=== PATIENT | male | born 1965 | race Caucasian/White ===

== ENCOUNTER 2020-03-28 00:28 | Outpatient (CLI) | payer BC, SELFPAY ==
[2020-03-28 17:43] LABS: SARS-CoV-2 RNA PCR Negative
== END 2020-03-28 00:29 | disposition home or self-care (01) ==
LOC: ANHCOVIDDT 00:29
PROVIDERS: PCP Family Medicine Sports Medicine; Visit Provider Internal Medicine Gastroenterology
DX: Z01.818 Encounter for other preprocedural examination (principal); Z11.59 Encounter for screening for other viral diseases
CPT/HCPCS: 87635; C9803; U0003

== ENCOUNTER 2020-03-30 01:52 | Day surgery (SDC) | payer BC, SELFPAY ==
[2020-03-23 10:23] VITALS: BMI 31.0
[2020-03-30] MEDS: LACTATED RINGERS 1,000 ML 150 ML IV CONT (07:16)
[2020-03-30 07:19] VITALS: BP 132/91; PULSE 79; RESP 16; TEMP 36.6; O2SAT 96; BMI 29.6
--- NOTE | 2020-03-30 07:29 | P.PNAN_ITS ---
Anes - Initial Pre Proc Eval Procedure: Operation Date: 03/30/20 08:30 Proposed Procedures p Esophagogastroduodenoscopy & Screening Colonoscopy - Mukesh Mckeon MD Date/Time: 03/30/20 07:29 Surgeon: Mukesh Maynard MD Pre Op Diagnosis: Neoplasm Screening/ Cirrhosis Patient Data Age: 55 Gender: M Height: 1.8 m Weight: 96.3 kg Last Vital Signs Temp 36.6 C 03/30/20 07:19 Pulse 79 03/30/20 07:19 Resp 16 03/30/20 07:19 BP 132/91 H 03/30/20 07:19 Pulse Ox 96 03/30/20 07:19 Allergies Allergy/AdvReac Type Severity Reaction Status Date / Time No Known Allergies Allergy Unverified 03/21/20 10:52 Home Medications Medication Instructions Recorded Confirmed Type losartan 100 1 tablet PO DAILY 03/21/20 03/30/20 History mg-hydrochlorothiazide 25 mg tablet Patient hx anesthesia problems: none Family hx anesthesia problems: none [facility] Past Medical History Medical History (Updated 03/21/20 @ 11:26 by Mukesh Maynard MD) Cirrhosis Colon cancer screening Elevated liver enzymes Hypertension Anes - Eval Final PreProcedure Day of Procedure 03/30/20 07:29 Patient weight: overweight Heart: regular rate and rhythm Lungs: clear to auscultation and normal air movement Airway: Mallampati scale class II Neurological: alert and oriented Last oral intake: >/= 8 hours ASA classification: III Emergent: no Anesthetic plan: proceed Anesthesia type and monitoring: general GIVS Informed Consent: The patient's anesthetic plan and its attendant risks and benefits were discussed with the patient/family/POA. Questions were solicited and answers provided to the satisfaction of the patient/family/POA.
--- NOTE | 2020-03-30 07:59 | WPDHPUPDATE1 ---
History and Physical Update Update Date/Time: 03/30/20 07:59 History and Physical has been reviewed, including an updated exam of the patient. There are NO changes in the patient's condition. Risks, benefits, and alternatives have been discussed and questions answered. Patient agrees to proceed with procedure.
[2020-03-30 08:37] VITALS: BP 88/57; PULSE 67; RESP 20; O2SAT 95
[2020-03-30 08:47] VITALS: BP 98/66; PULSE 66; RESP 15; O2SAT 94
[2020-03-30 08:57] VITALS: BP 100/70; PULSE 65; RESP 22; O2SAT 94
== END 2020-03-30 09:16 | disposition home or self-care (01) ==
PROVIDERS: PCP Family Medicine Sports Medicine; Visit Provider Internal Medicine Gastroenterology
PROC: 0DJ08ZZ Inspection of Upper Intestinal Tract, Via Natural or Artificial Opening Endoscopic (ICD-10-PCS; CPT 43235; principal; 2020-03-30 08:30)
DX: Z12.11 Encounter for screening for malignant neoplasm of colon (principal); D12.3 Benign neoplasm of transverse colon; D12.5 Benign neoplasm of sigmoid colon; K63.5 Polyp of colon; K64.8 Other hemorrhoids; K57.30 Diverticulosis of large intestine without perforation or abscess without bleeding; K74.60 Unspecified cirrhosis of liver; I10 Essential (primary) hypertension
CPT/HCPCS: 45380; 45385; 43235; 88305; J2001; J2704; J7120

== ENCOUNTER 2021-07-13 14:18 | Day surgery (SDC) | payer BC, SELFPAY ==
[2021-07-13] VITALS (7 sets, daily range): BP systolic 114–158; BP diastolic 83–107; PULSE 60–88; RESP 16–22; TEMP 36.3–36.7; O2SAT 96–99
--- NOTE | ~2021-07-13 | XR_ITS ---
XR chest 1V portable DATE: 07/13/2021 14:56 INDICATION: Chest pain. Steak stuck since . TECHNIQUE: Portable upright AP chest on 07/13/2021 at 1452 hours COMPARISON: None FINDINGS: Normal heart size. Minimal aortic unfolding. No hilar or mediastinal enlargement. The lungs are clear of infiltrate or consolidation. No pleural effusion or pulmonary vascular congestion or pn eumothorax. Mild scoliosis. IMPRESSION: No active cardiopulmonary disease Reviewed, dictated and finalized at location A.
--- NOTE | 2021-07-13 14:46 | ED.GENADULT ---
HPI - General Adult General Chief complaint: Unspecified Stated complaint: STEAK STUCK Time Seen by Provider: 07/13/21 14:20 Source: RN notes reviewed History of Present Illness HPI narrative: Patient presents emergency department from home for food impaction. Patient states he was eating steak Th night when a piece of steak got lodged in his lower throat. Patient states he has been unable to tolerate any liquids or his secretions since that time he denies any fevers or chills states he did try drinking soda with minimal relief he does note a pressure in his middle lower chest states he has never had an EGD Related Data Home Medications Medication Instructions Recorded Confirmed losartan 100 1 tablet PO DAILY 03/21/20 03/30/20 mg-hydrochlorothiazide 25 mg tablet Allergies Allergy/AdvReac Type Severity Reaction Status Date / Time No Known Allergies Allergy Unverified 03/21/20 10:52 Review of Systems Review of Systems: Gen.: Denies fevers or chills ENT: Denies congestion Respiratory: Denies shortness of breath or cough CV: Reports lower midsternal chest pain GI: See HPI Musculoskeletal: Denies back pain or muscle pain Neuro: Denies numbness, tingling, weakness or focal weakness Skin: Denies rash Except as documented, all other systems reviewed and negative [facility] Past Medical History Medical History Adenomatous colon polyp Cirrhosis Colon cancer screening Elevated liver enzymes Hepatitis C Hypertension Social History Social History (Updated 07/13/21 @ 15:23 by Maeve Lugo CRNA) Smoking packs per day: 1.5 Smoking cigarettes per day: 30.0 Years smoked: 45 Smoking pack-years: 67.50 Smoking status: Current every day smoker Tobacco type: cigarettes Substance use type: does not use Living arrangements: with family Exam Narrative: APPEARANCE: No acute distress, nontoxic, resting in bed EYES: EOMI HEENT: Normocephalic, atraumatic, OMM airway patent RESPIRATORY: No respiratory distress Clear to auscultation bilaterally with no rhonchi wheezing or rales. CARDIOVASCULAR: Regular rate and rhythm without murmurs rubs or gallops. ABDOMINAL: Soft, nontender, nondistended, no rebound or guarding MUSCULOSKELETAl: Moves all extremities. No clubbing, cyanosis or edema. NEURO: Awake and alert. Following commands, speech normal, no focal deficits SKIN:: Warm, dry. No rashes lesions or abrasions PSYCHIATRIC: Normal affect/mood, Course Course Emergency Course: Did have patient drink soda and jumped up and down patient immediately with emesis Called discussed Dr. Gusman will take to GI lab Discussed with patient plan for endoscopy lab in agreement Vital Signs Vital signs: Vital Signs Temperature 97.7 F 07/13/21 14:19 Pulse Rate 60 07/13/21 14:19 Respiratory Rate 16 07/13/21 14:19 Blood Pressure 158/98 H 07/13/21 14:19 Pulse Oximetry 96 07/13/21 14:19 Temperature 98.1 F 07/13/21 14:58 Pulse Rate 88 07/13/21 14:58 Respiratory Rate 18 07/13/21 14:58 Blood Pressure 151/101 H 07/13/21 14:58 Pulse Oximetry 98 07/13/21 14:58 Medical Decision Making Vital Signs Vital Signs: Vital Signs Temperature 97.7 F 07/13/21 14:19 Pulse Rate 60 07/13/21 14:19 Respiratory Rate 16 07/13/21 14:19 Blood Pressure 158/98 H 07/13/21 14:19 Pulse Oximetry 96 07/13/21 14:19 Temperature 98.1 F 07/13/21 14:58 Pulse Rate 88 07/13/21 14:58 Respiratory Rate 18 07/13/21 14:58 Blood Pressure 151/101 H 07/13/21 14:58 Pulse Oximetry 98 07/13/21 14:58 Lab Data Result diagrams: 07/13/21 15:07 07/13/21 15:07 Labs: Lab Results 07/13/21 07/13/21 Range/Units 15:07 15:07 WBC 9.6 (4.5-10.0) K/mm3 RBC 5.48 (4.6-6.20) M/mm3 Hgb 17.7 (14.0-18.0) g/dL Hct 50.5 (42.0-52.0) % MCV 92.2 (80-100) fl MCH 32.3 (26-34) pg MCHC 35.
--- NOTE | 2021-07-13 15:19 | WPDANESEPP ---
Anes - Eval Pre Procedure Procedure: upper endoscopsy for food bolus Date/Time: 07/13/21 15:19 Surgeon: Naseem Preop Diagnosis: esophageal obstruction, food bolus Pre Op Diagnosis: Food Bolus Patient Data Age: 56 Gender: M Height: 1.8 m Weight: 100 kg Last Vital Signs Temp 98.1 F 07/13/21 14:58 Pulse 88 07/13/21 14:58 Resp 18 07/13/21 14:58 BP 151/101 H 07/13/21 14:58 Pulse Ox 98 07/13/21 14:58 Allergies Allergy/AdvReac Type Severity Reaction Status Date / Time No Known Allergies Allergy Unverified 03/21/20 10:52 Home Medications Medication Instructions Recorded Confirmed Type losartan 100 1 tablet PO DAILY 03/21/20 03/30/20 History mg-hydrochlorothiazide 25 mg tablet Patient hx anesthesia problems: none Family hx anesthesia problems: none PMFSH Past Medical History Medical History Adenomatous colon polyp Cirrhosis Colon cancer screening Elevated liver enzymes Hepatitis C Hypertension Social History Social History (Updated 07/13/21 @ 15:23 by Maeve Lugo CRNA) Smoking packs per day: 1.5 Smoking cigarettes per day: 30.0 Years smoked: 45 Smoking pack-years: 67.50 Smoking status: Current every day smoker Tobacco type: cigarettes Substance use type: does not use Living arrangements: with family Exam Day of Procedure 07/13/21 15:19 Patient weight: overweight (bmi 30.7) Airway: Mallampati scale class II (partial plate- upper) Neurological: alert and oriented
[2021-07-13 15:27] LABS: Basophils Absolute Auto 0.1 K/mm3 (0.0-0.1); Basophils Percent Auto 0.5 % (0.2-1.2); Eosinophils Absolute Auto 0.2 K/mm3 (0-0.3); Eosinophils Percent Auto 2.2 % (0-4.4); Hematocrit 50.5 % (42.0-52.0); Hemoglobin 17.7 g/dL (14.0-18.0); Immature Granulocyte Absolute 0.03 K/mm3 (0.00-0.031); Immature Granulocyte Percent A 0.3 % (0-0.5); Lymphocytes Absolute Auto 3.48 K/mm3 (0.9-3.2); Lymphocytes Percent Auto 36.3 % (18.3-44.2); Mean Corpuscular Hemoglobin 32.3 pg (26-34); Mean Corpuscular Volume 92.2 fl (80-100); Mean Platelet Volume 10.9 fl (7.4-10.4); Monocytes Absolute Auto 0.6 K/mm3 (0.1-0.6); Monocytes Percent Auto 6.3 % (2.6-8.5); Neutrophils Absolute Auto 5.2 K/mm3 (1.3-6.7); Neutrophils Percent Auto 54.4 % (45.5-73.1); Platelet Count Result 206 k/mm3 (150-375); Red Blood Count 5.48 M/mm3 (4.6-6.20); Red Cell Distribution Width 13.6 % (11.5-14.5); White Blood Count 9.6 K/mm3 (4.5-10.0)
[2021-07-13 15:35] LABS: Alanine Aminotransferase 24 U/L (4-50); Alkaline Phosphatase 79 U/L (38-126); Anion Gap 13 mmol/L (8-16); Aspartate Amino Transferase 36 U/L (17-59); Bilirubin,Total 1.6 mg/dL (0.2-1.3); Blood Urea Nitrogen 24 mg/dL (9-20); Calcium 9.9 mg/dL (8.4-10.2); Carbon Dioxide 21 mmol/L (22-30); Chloride 110 mmol/L (98-107); Estimated CRCL calculation 62 ml/min; Estimated Glomerular Filt Rate 52; Glucose 111 mg/dL (65-110); Potassium 3.3 mmol/L (3.4-5.0); Sodium 144 mmol/L (137-145)
[2021-07-13] MEDS: LACTATED RINGERS 1,000 ML 150 ML IV CONT ×2 (15:48→16:02)
--- NOTE | 2021-07-13 15:59 | WPDANESEFPP ---
Anes - Eval Final PreProcedure Day of Procedure 07/13/21 15:59 Patient weight: obese Heart: regular rate and rhythm Lungs: clear to auscultation and normal air movement Airway: Mallampati scale class II Neurological: alert and oriented Last oral intake: >/= 8 hours ASA classification: III Emergent: yes Anesthetic plan: proceed Anesthesia type and monitoring: general ETT and standard monitoring Informed Consent: The patient's anesthetic plan and its attendant risks and benefits were discussed with the patient/family/POA. Questions were solicited and answers provided to the satisfaction of the patient/family/POA.
--- NOTE | 2021-07-13 16:08 | PM.HPGS ---
History of Present Illness History of Present Illness Consent: Risks, benefits, and alternatives have been discussed and questions answered. Patient agrees to proceed with procedure. Chief complaint: Food Bolus Narrative: Maurilio Gregory is a 56 year old male here after eat steak and got stuck, unable to keep eating or drinking anything. I am seeing him at the office because history of HCV for which he is been treated now with epclusa. EGD last year was normal (reason was screening for varices). Denies dysphagia otherwise. Review of Systems Constitutional: Constitutional: Denies headache(s) and Denies weakness Eyes: Eyes: Denies blurry vision ENT: Reports Normal hearing present, Denies headache(s) and Denies neck pain Cardiovascular: Cardiovascular: Denies chest pain and Denies dyspnea Respiratory: Respiratory: Denies dyspnea Gastrointestinal: Gastrointestinal: Reports no additional gastrointestinal complaints Genitourinary: Genitourinary: Denies dysuria Musculoskeletal: Musculoskeletal: Denies neck pain Integumentary/Breasts: Skin/Breast: Denies dry skin Neurologic: Reports Normal hearing present, Denies headache(s) and Denies weakness Psychiatric: Psychiatric: Denies anxiety Endocrine: Endocrine: Denies change in body appearance Hematologic/Lymphatic: Hematologic/Lymphatic: Denies easy bleeding Allergic/Immunologic: Allergic/Immunologic: Denies urticaria PMFSH Past Medical History Medical History Adenomatous colon polyp Cirrhosis Colon cancer screening Elevated liver enzymes Hepatitis C Hypertension Social History Social History (Updated 07/13/21 @ 15:23 by Maeve Lugo CRNA) Smoking packs per day: 1.5 Smoking cigarettes per day: 30.0 Years smoked: 45 Smoking pack-years: 67.50 Smoking status: Current every day smoker Tobacco type: cigarettes Substance use type: does not use Living arrangements: with family Meds Home Medications and Allergies Home Medications Medication Instructions Recorded Confirmed Type losartan 100 1 tablet PO DAILY 03/21/20 07/13/21 History mg-hydrochlorothiazide 25 mg tablet Allergies Allergy/AdvReac Type Severity Reaction Status Date / Time No Known Allergies Allergy Verified 07/13/21 15:55 Vital Signs Vital Signs - 24 hr 07/13/21 14:19 07/13/21 14:58 07/13/21 15:49 Temperature 97.7 F 98.1 F 97.4 F L Pulse Rate 60 88 75 Respiratory Rate 16 18 18 Blood Pressure 158/98 H 151/101 H 149/106 H Pulse Oximetry 96 98 96 07/13/21 16:00 Temperature 97.8 F Pulse Rate 76 Respiratory Rate 20 Blood Pressure 155/107 H Pulse Oximetry 97 Exam Const: General: comfortable and no acute distress HENMT: General nose exam: Normal nares present Eyes: General: appearance normal, both eyes and all related structures Neck: Neck: no JVD Resp: Auscultation: clear to auscultation bilaterally Cardio: Rate: regular rate Rhythm: regular rhythm GI: Inspection: non-distended GI Palp: Yes Soft to palpation Skin: General skin exam: normal color Neuro: General: gait normal Speech: normal speech Extrem: General: normal to inspection Psych: Mental Status: mental status grossly normal Assessment and Plan Assessment and plan (1) Esophageal obstruction due to food impaction: Code(s): K22.2 - Esophageal obstruction; T18.128A - Food in esophagus causing other injury, initial encounter Status: Acute Assessment and Plan: urgent egd (2) Hepatitis C: Code(s): B19.20 - Unspecified viral hepatitis C without hepatic coma Status: Acute Assessment and Plan: he is on treatment now
[2021-07-13] MEDS: BENZOCAINE (*SP) 60 ML SPRAY CAN (HURRICAINE) 1 SPRAY MUCOUS MEM (16:09)
== END 2021-07-13 17:25 | disposition home or self-care (01) ==
LOC: ANHED 15:08 → ANHSURGERY 15:18
PROVIDERS: Emergency Provider Emergency Medicine; PCP Family Medicine Sports Medicine; Visit Provider Internal Medicine Gastroenterology
PROC: 0DJ08ZZ Inspection of Upper Intestinal Tract, Via Natural or Artificial Opening Endoscopic (ICD-10-PCS; CPT 43235; principal; 2021-07-13 16:00)
DX: T18.128A Food in esophagus causing other injury, initial encounter (principal); K20.90 Esophagitis, unspecified without bleeding; K22.2 Esophageal obstruction; K44.9 Diaphragmatic hernia without obstruction or gangrene; I10 Essential (primary) hypertension; B19.20 Unspecified viral hepatitis C without hepatic coma; F17.210 Nicotine dependence, cigarettes, uncomplicated
CPT/HCPCS: 43247; 43239; 36415; 71045; 80053; 85025; 88305; 99285; A9270; J0330; J2704; J7120